=== PATIENT | male | born 1985 | race Caucasian/White ===

== ENCOUNTER 2024-11-25 06:28 | Emergency (ER) | payer OTHER, SELFPAY ==
[2024-11-25 06:36] VITALS: BP 164/98
--- NOTE | 2024-11-25 06:52 | ED.GENMED ---
History of Present Illness
<Adin Faye MD, Resident - Last Filed: 11/25/24 09:43>
General
Chief Complaint: Cold/Flu/URI Symptoms
Time Seen by Provider: 11/25/24 06:45
History of Present Illness
History of Present Illness:
This is a 39-year-old male presents today with ED complaining of URI symptoms including headaches, body aches, cough, sore throat which all started on Monday. He reports he went to seek care at the urgent care and was started on prednisone
course. COVID and flu testing was done in the urgent care which were all negative. He reports symptoms continued and he went back to the urgent care on Monday. He was noted to have thrush secondary to the steroid. Statin was discontinued and was
started on Nystatin. Patient reports symptoms of nonproductive cough, body aches and fatigue continued prompting him to seek care at the ED today. He has been taking [id number] cough suppressants, Excedrin, ibuprofen for symptomatic
treatment. Today, he denies chest pain, shortness of breath.
Past History
<Adin Faye MD, Resident - Last Filed: 11/25/24 09:43>
Past History
ED Past Medical History: Arrthythmia (A. fib (resolved status post ablation))
ED Past Surgical History: Cardiac (Ablation)
Social History
Tobacco: Non-smoker
Alcohol: Occasional
Drug: None
Personal: Single
Living: alone
Phy Exam
<Adin Faye MD, Resident - Last Filed: 11/25/24 09:43>
General Physical Exam
General Presentation: well appearing and no apparent distress
General Mental: alert
ENT Exam
ENT Exam: other (Oral mucosa thrush)
Eye Exam
Eye Exam: EOMI
Cardiovascular Exam
Cardiovascular Exam: regular rate/rhythm and no edema
Pulmonary Exam
Pulmonary Exam: lungs clear, no respiratory distress, no crackles and no rhonchi
Neurological Exam
Neurological Exam: alert and oriented x3
Psychiatric Exam
Psychiatric Exam: normal mood/affect
Course
<Adin Faye MD, Resident - Last Filed: 11/25/24 09:43>
Orders/Labs/Results
Orders:
Orders
11/25/24 07:15
EKG [Electrocardiogram (*1)] Stat
Reason for Study: Tachycardia
Cardiac Monitoring- Treatment ONCE
EKG- Treatment ONCE
Vital Signs- Treatment ONCE
Frequency: Once
11/25/24 07:52
COVID-19 Antigen Urgent
Source: Nasal Swab
Influenza A+B Rapid Molecular Urgent
KAYLENE Source: Nasal Swab
Specimen Description:
11/25/24 08:24
CR Chest - 2 Views Urgent
Comment:
Reason For Exam: cough
Vital Signs
Initial and Last Documented VS:
Initial Vital Signs
Temp Pulse Resp BP Pulse Ox
98.6 F 120 24 164/98 96
11/25/24 06:36 11/25/24 06:36 11/25/24 06:36 11/25/24 06:36 11/25/24 06:36
Last Documented Vital Signs
Temp Pulse Resp BP Pulse Ox
99.5 F 88 20 164/98 97
11/25/24 07:48 11/25/24 07:48 11/25/24 07:48 11/25/24 06:36 11/25/24 09:00
<Edis Patton, DO - Last Filed: 11/25/24 08:58>
Orders/Labs/Results
Orders:
Orders
11/25/24 07:15
EKG [Electrocardiogram (*1)] Stat
Reason for Study: Tachycardia
Cardiac Monitoring- Treatment ONCE
EKG- Treatment ONCE
Vital Signs- Treatment ONCE
Frequency: Once
11/25/24 07:52
COVID-19 Antigen Urgent
Source: Nasal Swab
Influenza A+B Rapid Molecular Urgent
KAYLENE Source: Nasal Swab
Specimen Description:
11/25/24 08:24
CR Chest - 2 Views Urgent
Comment:
Reason For Exam: cough
Vital Signs
Initial and Last Documented VS:
Initial Vital Signs
Temp Pulse Resp BP Pulse Ox
98.6 F 120 24 164/98 96
11/25/24 06:36 11/25/24 06:36 11/25/24 06:36 11/25/24 06:36 11/25/24 06:36
Last Documented Vital Signs
Temp Pulse Resp BP Pulse Ox
99.5 F 88 20 164/98 97
11/25/24 07:48 11/25/24 07:48 11/25/24 07:48 11/25/24 06:36 11/25/24 09:00
<Adin Faye MD, Resident - Last Filed: 11/25/24 09:43>
MDM/Problems Addressed
MDM/Problems Addressed:
39-year-old with history of paroxysmal atrial fibrillation status post ablation presents to the ED complaining of URI symptoms including headache, nonproductive cough, sore throat. On presentation, he is well-appearing in no distress. Vital signs
with heart rate 120, respiratory 24. At this time we will check COVID, flu. Given history of atrial fibrillation, evaluated with an EKG which was unremarkable. Will Repeat vital signs.
Update ; patient was evaluated with a chest x-ray, with airspace consolidation within the left lower lobe, suggestive of pneumonia. Patient to be started on amoxicillin and azithromycin for treatment of community-acquired pneumonia. Prior to
discharge, vital signs with heart rate 88, respiratory 20
<Adin Faye MD, Resident - Last Filed: 11/25/24 09:43>
*Critical Care Note
Total Time (30-74mins, 75-104mins- exclusive of procedures): Not Applicable
ED Attending Note
<Adin Faye MD, Resident - Last Filed: 11/25/24 09:43>
-
Portions of this chart may have been created with voice recognition software.� Occasional wrong word or��sound alike� substitutions may have occurred due to the inherent limitations of voice recognition software.
<Edis Patton, DO - Last Filed: 11/25/24 08:58>
ED Attending Note
Patient seen and examined by attending physician: Yes
I performed a history and physical exam of patient and discussed management with resident, I reviewed resident's note and agree with documented findings and plan of care.: Yes
ED Attending Note:
I reviewed and agree with history and treatment plan by Adin Faye MD. My exam revealed nontoxic, otherwise well-appearing 39-year-old male. Lungs with rhonchi left lower lung. No respiratory distress. Chest x-ray reveals left lower
lung consolidation. Treat with amoxicillin and Zithromax. Follow-up primary care. Return precautions given.
Discharge Plan
Departure
Patient Disposition: Home (Routine Discharge)
Date of Disposition: 11/25/24
Time of Disposition: 09:03
Patient with high blood pressure during this ER visit?: No
Discharge Problem:
Pneumonia
Instructions: Community-acquired pneumonia in adults
Prescriptions:
New
amoxicillin 500 mg capsule
1,000 mg PO TID Qty: 50 0RF
Rx Instructions:
amoxicillin 1g TID x7days
azithromycin 250 mg tablet
250 mg PO DAILY 7 Days Qty: 10 0RF
Rx Instructions:
500 mg x1 on first day
250 mg daily for 6 days to complete total 7 days
No Action
metoprolol succinate [Toprol XL] 25 MG tablet extended release 24 hr
25 mg PO BID
rivaroxaban [Xarelto] 20 MG tablet
20 mg PO QPM Qty: 1 0RF
amoxicillin-pot clavulanate 875-125 mg tablet
1 tab PO BID Qty: 14 0RF
ciprofloxacin HCl 500 mg tablet
500 mg PO BID Qty: 14 0RF
Referrals:
Edison Maki DO [Family Provider] - Follow up in 1 week
Interventions
Interventions:
*Risk Screen - Suicide Last Done: 11/25/24 06:36
*General Assessment Last Done: 11/25/24 09:00
*Neglect/Abuse Screening Last Done: 11/25/24 06:36
*ED- Fall Risk Assessment Last Done: 11/25/24 09:39
*ED COVID-19 Vaccine History Last Done: 11/25/24 09:39
*Nursing Disposition Last Done: 11/25/24 09:39
ED- Pulmonary Assessment Last Done: 11/25/24 09:00
Discharge Date and Time
Discharge Date/Time: 11/25/24 09:40
Print Language: [id number]
[2024-11-25 07:47] VITALS: BMI 33.1
[2024-11-25 07:49] VITALS: BP 118/90; BP 120/81; BP 126/91; PULSE 107; PULSE 83; PULSE 95
[2024-11-25 08:22] LABS: COVID-19 Antigen Negative (Negative)
== END 2024-11-25 09:40 | disposition home or self-care (01) ==
LOC: EMR 06:28
PROVIDERS: Student in an Organized Health Care Education/Training Program; EMERGENCY PHYSICIAN Emergency Medicine; FAMILY PHYSICIAN Family Medicine
DX: J18.9 Pneumonia, unspecified organism (principal); I48.0 Paroxysmal atrial fibrillation
CPT/HCPCS: 99283; 71046; 87502; 87811; 93005